=== PATIENT | male | born 1990 | race Two or more races ===

== ENCOUNTER 2019-06-19 05:41 | Day surgery (SDC) | payer OTHER ==
[~2019-06-19] VITALS: Ht 188 cm; Wt 136.1 kg
[2019-06-19] VITALS (18 sets, daily range): BP systolic 125–165; BP diastolic 75–98
[2019-06-19] MEDS ORDERED: ceFAZolin 1gm IVPB IVPB ONE ×2 (06:00)
[2019-06-19] MEDS ORDERED: oxyCONTIN 20mg tab ORAL ONE (06:00)
[2019-06-19] MEDS ORDERED: celeBREX 200mg Cap **SURGERY PATIENTS ONLY ORAL ONE (06:00)
[2019-06-19] MEDS ORDERED: LR 1000ml ONE (07:00)
[2019-06-19] MEDS ORDERED: Sterile Water Irrig 1000ml IRRIG ONE (07:00)
[2019-06-19] MEDS ORDERED: fentaNYL 100 mcg/2 mL IV ONE (07:08)
[2019-06-19] MEDS ORDERED: Bupivacaine 0.25% Inj 30ml INJ ONE (07:10)
[2019-06-19] MEDS ORDERED: Ketorolac 30mg Inj ONE (07:10)
[2019-06-19] MEDS ORDERED: Kenalog-40 1ml Vial ONE (07:10)
[2019-06-19] MEDS ORDERED: Duramorph PF 5mg/10ml amp ONE (07:10)
[2019-06-19] MEDS ORDERED: LR 1000ml 1,000 ML IVLG SCH (07:11)
[2019-06-19] MEDS ORDERED: Lidocaine 1% 10mg/ml/Epi 0.005mg/ml 30ml vial INJ ONE (07:11)
[2019-06-19] MEDS ORDERED: Metoclopramide 10mg/2ml Inj IVP PRN (07:15)
[2019-06-19] MEDS ORDERED: Acetaminophen (Non formulary) 100 ML IV ONE (07:15)
[2019-06-19] MEDS ORDERED: Atropine Sulfate 0.4mg/ml inj IVP PRN (07:15)
[2019-06-19] MEDS ORDERED: Midazolam 2mg/2ml Inj IVP PRN (07:15)
[2019-06-19] MEDS ORDERED: Hydromorphone 0.5mg/0.5ml inj IVP PRN (07:15)
[2019-06-19] MEDS ORDERED: Meperidine 25mg/0.5ml Inj (FOR RIGORS ONLY) IV PRN (07:15)
[2019-06-19] MEDS ORDERED: DiphenhydrAMINE 50mg/ml Inj IVP PRN (07:15)
[2019-06-19] MEDS ORDERED: HYDROcodone/Acetamin 7.5/325 tab ORAL PRN (07:15)
[2019-06-19] MEDS ORDERED: LORazepam Inj 2mg/ml 1ml IV PRN (07:15)
[2019-06-19] MEDS ORDERED: fentaNYL 100 mcg/2 mL IV PRN (07:15)
[2019-06-19] MEDS ORDERED: Ketorolac 30mg Inj IV PRN ×2 (07:15)
[2019-06-19] MEDS ORDERED: Labetalol 5mg/ml 20ml vial IV PRN (07:15)
[2019-06-19] MEDS ORDERED: oxyCODONE HCL/Acetaminophen 5/325mg ORAL PRN (07:15)
[2019-06-19] MEDS ORDERED: HYDROcodone/Acetamin 5/325 tab ORAL PRN ×3 (07:15→07:30)
--- NOTE | 2019-06-19 07:16 | Anethesia Preoperative Eval ---
Anesthesia Pre-op PMH/ROS General Date of Evaluation: Jun 19, 2019 Time of Evaluation: 07:11 Anesthesiologist: Minesh ASA Score: ASA 2 Mallampati Score Class I : Soft palate, uvula, fauces, pillars visible Class II: Soft palate, uvula, fauces visible Class III: Soft palate, base of uvula visible Class IV: Only hard plate visible Mallampati Classification: Class III Surgeon: Rk Diagnosis: R Knee Pain Surgical Procedure: R Knee Arthroscopy Anesthesia History: none Family History: no anesthesia problems Allergies: Coded Allergies: No Known Allergies (Unverified , 06/17/19) Medications: see eMAR Patient NPO?: Yes Past Medical History Gastrointestinal/Genitourinary: Reports: GERD Other: obesity - BMI 40 Anesthesia Pre-op Phys. Exam Physician Exam Last Vital Signs Date Time Temp Pulse Resp B/P (MAP) Pulse Ox O2 Delivery O2 Flow Rate FiO2 06/19/19 06:20 98.2 92 20 137/92 99 Room Air Constitutional: NAD Neurologic: CN 2-12 intact Cardiovascular: RRR Respiratory: CTA Gastrointestinal: S/NT/ND Airway Exam Mallampati Score: Class III MO: limited ROM: limited Teeth: missing, intact Anesthesia Pre-op A/P Risk Assessment & Plan Assessment: ASA 2 Plan: GA, SED, GlideScope Go Status Change Before Surgery: No Pre-Antibiotics Dru Grams Ancef IV Given Within 1 Hr of Incision: Yes Time Given: 07:31 Jasbir Edge MD Jun 19, 2019 07:16
[2019-06-19] MEDS ORDERED: Sodium Chloride 10ml vial INJ ONE (07:17)
[2019-06-19] MEDS ORDERED: Lidocaine 1% MPF 10mg/ml 5ml ONE (07:17)
[2019-06-19] MEDS ORDERED: Propofol 200mg/20ml IV ONE (07:17)
[2019-06-19] MEDS ORDERED: Ketamine 500mg/10ml vial ONE (07:17)
[2019-06-19] MEDS ORDERED: Dexamethasone 4mg/ml vial ONE (07:17)
--- NOTE | 2019-06-19 07:20 | Pre-Procedure Note/Attestation ---
Pre-Procedure Note/Attestation Complete Prior to Procedure Planned Procedure: right Procedure Narrative: knee diagnostic arthroscopy, possible menisectomy/chondroplasty Indications for Procedure Pre-Operative Diagnosis: right knee lateral meniscus tear Attestation I attest that I discussed the nature of the procedure; its benefits; risks and complications; and alternatives (and the risks and benefits of such alternatives ), prior to the procedure, with the patient (or the patient's legal farm loan representative). I attest that, if there was a reasonable possibility of needing a blood transfusion, the patient (or the patient's legal farm loan representative) was given the [facility] standardized written summary, pursuant to the [place] Blood Safety Act ([place] Health and Safety Code # 1645, as amended). I attest that I re-evaluated the patient just prior to the surgery and that there has been no change in the patient's H&P, except as documented below: Papa Beckman MD Jun 19, 2019 07:20
--- NOTE | 2019-06-19 07:21 | Operative Note - PDOC ---
Operative Note Operative Note Pre-op Diagnosis: right knee lateral meniscus tear Procedure: see op report Post-op Diagnosis: same as pre-op plus Operative Findings: consistent w/pre-op dx studies Anesthesia: MAC Specimen: none Complications: none Condition: stable Estimated Blood Loss: none Implant(s) used?: No Papa Beckman MD Jun 19, 2019 07:21
[2019-06-19] MEDS ORDERED: Tylenol #3 tab (300mg/30mg) ORAL PRN ×2 (07:30)
[2019-06-19] MEDS ORDERED: HYDROmorphone 1mg/ml Carpuject SUBQ PRN ×2 (07:30)
[2019-06-19] MEDS ORDERED: D5 1/2NS 1,000 ML IV SCH ×2 (07:30)
[2019-06-19] MEDS ORDERED: NS Irrig 4000ml IRRIG ONE ×3 (07:38→08:04)
--- NOTE | 2019-06-19 07:50 | Immediate Post-Op Evaluation ---
Immediate Post-Op Evalulation Immediate Post-Op Evalulation Procedure: R Knee Arthroscopy Date of Evaluation: Jun 19, 2019 Time of Evaluation: 08:33 IV Fluids: 1000 LR Blood Products: 0 Estimated Blood Loss: 10 Urinary Output: 0 Blood Pressure Systolic: 132 Blood Pressure Diastolic: 85 Pulse Rate: 84 Respiratory Rate: 16 O2 Sat by Pulse Oximetry: 100 Temperature (Fahrenheit): 98.2 Pain Score (1-10): 2 Nausea: No Vomiting: No Complications 0 Patient Status: awake, reacts, patent, none Hydration Status: adequate Dru Grams Ancef IV Given Within 1 Hr of Incision: Yes Time Given: 07:31 Jasbir Edge MD Jun 19, 2019 07:50
--- NOTE | 2019-06-19 07:51 | 48 Hour Post Anesthesia Eval ---
Post Anesthesia Evaluation Procedure: R Knee Arthroscopy Date of Evaluation: Jun 19, 2019 Time of Evaluation: 10:43 Blood Pressure Systolic: 133 0: 82 Pulse Rate: 81 Respiratory Rate: 18 Temperature (Fahrenheit): 98.4 O2 Sat by Pulse Oximetry: 100 Airway: patent Nausea: No Vomiting: No Pain Intensity: 2 Hydration Status: adequate Cardiopulmonary Status: Stable Mental Status/LOC: patient returned to baseline Follow-up Care/Observations: 0 Post-Anesthesia Complications: 0 Follow-up care needed: ready to discharge Jasbir Edge MD Jun 19, 2019 07:51
[2019-06-19] MEDS ORDERED: Duramorph PF 5mg/10ml amp IT ONE ×2 (07:57→08:10)
--- NOTE | 2019-06-19 16:45 | Operative Note - Dictated ---
DATE OF OPERATION: 06/19/2019 PREOPERATIVE DIAGNOSES: 1. Right knee lateral meniscus tear. 2. Right knee chondral damage. POSTOPERATIVE DIAGNOSES: 1. Right knee synovitis medial, lateral, and patellofemoral compartment. 2. Right knee lateral meniscus tear. 3. Right knee grade 2, grade 3 chondral damage lateral femoral condyle. PROCEDURE: 1. Right knee diagnostic arthroscopy, synovectomy medial, lateral, patellofemoral compartment. 2. Partial right knee lateral meniscectomy. 3. Chondroplasty, lateral femoral condyle. SURGEON: Papa Beckman M.D. ANESTHESIA: MAC. INDICATION FOR PROCEDURE: The patient is a pleasant gentleman who has had progressive right knee pain. He had MRI, which showed a tear of the lateral meniscus as well as subchondral damage. Given that he failed conservative treatment, elected to undergo right knee diagnostic arthroscopy and possible lateral meniscectomy and chondroplasty. The risks, limitations, expectations, and complications of procedure were discussed in detail. All questions addressed. DESCRIPTION OF PROCEDURE: After informed consent was obtained, the patient was brought to the operating room. The patient was placed under general anesthesia. The right leg was prepped and draped in a sterile manner. Time-out was performed. An inferolateral stab incision was then made. Trocar introduced in the knee joint. Systematic tour of the knee was performed. The patellofemoral compartment has hypertrophic synovial tissue. There was significant synovitis. The knee was lavaged to clear out the knee joint and to allow better visualization. Medial compartment was entered. There was hypertrophic synovial tissue and fat pad making visualization difficult. Medial working portal was established at this point to improve visualization. Synovectomy of the anterior compartment, medial compartment, intercondylar notch, and lateral compartment was performed. Medial compartment was entered, free of any meniscal chondral damage. The ACL was probed. The hypertrophic ligamentum mucosum once debrided showed that the ACL was intact and good tension. The lateral compartment was entered. There was radial tear between the junction of the anterior body and middle body of lateral meniscus. Partial meniscectomy was performed down to a stable rim of tissue. There was grade 2, grade 3 chondral damage in the lateral femoral condyle. Gentle chondroplasty was performed. Once this was done, the camera was repositioned in the patellofemoral compartment and a synovectomy in the patellofemoral compartment was completed. At this point, the instruments were removed. Portal sites were closed with 3-0 Monocryl sutures. Steri-Strips and sterile dressing were applied. ESTIMATED BLOOD LOSS: None. COMPLICATIONS: None. SPECIMENS: None. Papa Beckman M.D. DR: ARVIN JOB#: [id number] CC:
== END 2019-06-19 10:50 | disposition home or self-care (01) ==
LOC: SUR 05:41
DX: S83.281A Other tear of lateral meniscus, current injury, right knee, initial encounter (principal); M65.9 Synovitis and tenosynovitis, unspecified; X58.XXXA Exposure to other specified factors, initial encounter; Y92.9 Unspecified place or not applicable; K21.9 Gastro-esophageal reflux disease without esophagitis; E66.9 Obesity, unspecified; Z68.38 Body mass index [BMI] 38.0-38.9, adult
CPT/HCPCS: 29876; 29881; J0131; J0690; J1100; J1885; J2250; J2405; J2704; J2765; J3010; J3301; J3490; J7120; 94003; 94150